=== PATIENT | male | born 1945 | race Caucasian/White ===

== ENCOUNTER 2017-07-29 15:28 | Inpatient (IN) | payer OTHER ==
[~2017-07-29] VITALS: Ht 170.2 cm; Wt 76.4 kg
[~2017-07-29 15:28] MED LIST: ASPIR 8181 M1 PO; ASPIRIN325 MG PO; BENAZEPRIL HCL20 MG PO; CITALOPRAM HBR10 M1 PO; DIABETA,MICRON2.5 MG PO; LIPITOR20 MG PO; LOPRESSOR50 MG PO; METFORMIN HCL500 MG PO; NORVASC5 MG PO; PREVACID15 MG PO; VIAGRA50 MG PO
[2017-07-29 16:11] LABS: HEMATOCRIT 43.8 % (38.0-50.0); MCH 30.9 PG (29.0-34.0); MCHC 36.5 G/DL (30.0-36.0); MCV 84.7 FL (86-99); PLATELET COUNT 170 K/uL (156-360); RED BLOOD COUNT 5.17 M/uL (4.00-5.50); WHITE BLOOD COUNT 12.1 K/uL (4.1-10.2)
[2017-07-29 16:37] LABS: TROP-I INTERPRETATION NEGATIVE; TROPONIN-I < 0.01 ng/mL (0.0-0.30)
[2017-07-29 16:48] LABS: ALBUMIN 4.2 g/dL (3.2-4.8); CHLORIDE 98 mEq/L (99-109); POTASSIUM 3.9 mEq/L (3.7-5.4); SODIUM 139 mEq/L (136-147)
[2017-07-29 16:50] LABS: GLUCOSE 180 mg/dL (70-99); TOTAL PROTEIN 7.5 g/dL (6.4-8.3)
[2017-07-29 16:52] LABS: TOTAL BILIRUBIN 1.3 mg/dL (0.0-1.0)
[2017-07-29 16:54] LABS: ALKALINE PHOSPHATASE 86 IU/L (3-129); GFR ESTIMATE (CALCULATED) > 59 mL/min/ (58.99-99999)
[2017-07-29 16:55] LABS: UREA NITROGEN (BUN) 14 mg/dL (9-23)
[2017-07-29 16:56] LABS: AST (GOT) 11 IU/L (2-34)
[2017-07-29 16:57] LABS: ALT (GPT) 8 IU/L (3-49)
[2017-07-29] MEDS ORDERED: COZAAR50 MG PO (19:44)
[2017-07-29] MEDS ORDERED: IMODIUM A-D2 M2 PO (19:44)
[2017-07-29 21:57] LABS: HDL CHOLESTEROL 38 MG/DL (Desirable>=40); LDL CHOLESTEROL 63 mg/dL (Desirable<100); NON-HDL CHOLESTEROL 83 mg/dL (Desirable<160); TOTAL CHOLESTEROL 121 mg/dL (Desirable<200); TRIGLYCERIDES 100 MG/DL (Normal: <150)
[2017-07-29 22:23] VITALS: BP 190/91
[2017-07-29 22:34] LABS: TROP-I INTERPRETATION NEGATIVE; TROPONIN-I 0.01 ng/mL (0.0-0.30)
[2017-07-30] VITALS: BP 171/89
[2017-07-30 03:57] VITALS: BP 162/80
[2017-07-30 06:10] LABS: HEMATOCRIT 36.7 % (38.0-50.0); MCH 30.6 PG (29.0-34.0); MCHC 35.4 G/DL (30.0-36.0); MCV 86.4 FL (86-99); PLATELET COUNT 155 K/uL (156-360); RBC DIS.WIDTH-CV 12.2 % (11.8-14.6); RBC DIS.WIDTH-SD 38.5 % (39-53); RED BLOOD COUNT 4.25 M/uL (4.00-5.50); WHITE BLOOD COUNT 10.7 K/uL (4.1-10.2)
[2017-07-30 06:15] LABS: TROP-I INTERPRETATION NEGATIVE; TROPONIN-I 0.01 ng/mL (0.0-0.30)
[2017-07-30 06:17] LABS: ALBUMIN 3.3 G/DL (3.2-4.8); ALKALINE PHOSPHATASE 56 IU/L (3-129); ALT (GPT) 5 IU/L (3-49); AST (GOT) 8 IU/L (2-34); CHLORIDE 102 MEQ/L (99-109); GFR ESTIMATE (CALCULATED) > 59 mL/min/ (58.99-99999); GLUCOSE 137 mg/dL (70-99); POTASSIUM 3.5 MEQ/L (3.7-5.4); SODIUM 140 MEQ/L (136-147); TOTAL BILIRUBIN 0.8 MG/DL (0.0-1.0); TOTAL PROTEIN 5.9 G/DL (6.4-8.3); UREA NITROGEN (BUN) 15 mg/dL (9-23)
[2017-07-30 08:03] VITALS: BP 150/70
[2017-07-30 17:02] VITALS: BP 170/78
[2017-07-30 20:18] VITALS: BP 190/100
[2017-07-31] VITALS (8 sets, daily range): BP systolic 152–187; BP diastolic 82–90
[2017-07-31 09:43] LABS: HEMATOCRIT 42.6 % (38.0-50.0); MCH 30.4 PG (29.0-34.0); MCHC 35.2 G/DL (30.0-36.0); MCV 86.4 FL (86-99); NRBC (%) 0.3 /100 WBC (0-0); PLATELET COUNT 163 K/uL (156-360); RBC DIS.WIDTH-CV 12.1 % (11.8-14.6); RBC DIS.WIDTH-SD 38.5 % (39-53); RED BLOOD COUNT 4.93 M/uL (4.00-5.50); WHITE BLOOD COUNT 8.6 K/uL (4.1-10.2)
[2017-07-31 10:10] LABS: CHLORIDE 101 MEQ/L (99-109); CREATININE 1.1 MG/DL (0.6-1.3); GFR ESTIMATE (CALCULATED) > 59 mL/min/ (58.99-99999); GLUCOSE 154 mg/dL (70-99); POTASSIUM 4.2 MEQ/L (3.7-5.4); SODIUM 140 MEQ/L (136-147); UREA NITROGEN (BUN) 15 mg/dL (9-23)
[2017-07-31] MEDS ORDERED: LOSARTAN POTAS100 MG PO (13:15)
[2017-07-31] MEDS ORDERED: NICOTINE PATCH1 EAC2 TD (13:16)
[2017-07-31] MEDS ORDERED: ASPIR 8181 M1 PO (13:16)
[2017-08-01] VITALS (9 sets, daily range): BP systolic 162–210; BP diastolic 82–94
[2017-08-01 09:32] LABS: HEMOGLOBIN A1c (GLYCOHEMOGLOB) 6.6 % (Below 5.7)
[2017-08-01] MEDS ORDERED: NORVASC10 MG PO (09:46)
[2017-08-01] MEDS ORDERED: APRESOLINE25 MG PO (14:44)
[2017-08-02 00:12] VITALS: BP 152/86
[2017-08-02 04:00] VITALS: BP 145/78
[2017-08-02 08:00] VITALS: BP 156/84
[2017-08-02] MEDS ORDERED: APRESOLINE50 MG PO (08:33)
[2017-08-02 11:54] VITALS: BP 152/70
== END 2017-08-02 12:41 | disposition home or self-care (01) | DRG 66 ==
LOC: EME 15:28 → 5SOUTH 20:02 → EDOF 20:02 → ENRESERV 20:03 → 5SOUTH 21:50
PROVIDERS: Emergency Medicine Emergency Medical Services; Internal Medicine; Physician Assistant Medical
DX: I63.9 Cerebral infarction, unspecified (principal); R26.0 Ataxic gait; R42 Dizziness and giddiness; R11.2 Nausea with vomiting, unspecified; D72.829 Elevated white blood cell count, unspecified; I10 Essential (primary) hypertension; I25.10 Atherosclerotic heart disease of native coronary artery without angina pectoris; I36.1 Nonrheumatic tricuspid (valve) insufficiency; E78.00 Pure hypercholesterolemia, unspecified; E11.9 Type 2 diabetes mellitus without complications; K21.9 Gastro-esophageal reflux disease without esophagitis; K25.9 Gastric ulcer, unspecified as acute or chronic, without hemorrhage or perforation; G31.9 Degenerative disease of nervous system, unspecified; F32.9 Major depressive disorder, single episode, unspecified; R29.700 NIHSS score 0; F17.210 Nicotine dependence, cigarettes, uncomplicated; Z91.81 History of falling; Z79.84 Long term (current) use of oral hypoglycemic drugs; Z86.73 Personal history of transient ischemic attack (TIA), and cerebral infarction without residual deficits; Z95.1 Presence of aortocoronary bypass graft; Z98.41 Cataract extraction status, right eye; Z98.42 Cataract extraction status, left eye; Z82.3 Family history of stroke
CPT/HCPCS: 70450; 70551; 71045; 80048; 80053; 80061; 81003; 82948; 83036; 83880; 84484; 85027; 93005; 93306; 93880; 99281; 99285; J1644; J1815; J7040